=== PATIENT | male | born 1960 | race African-American/Black ===

== ENCOUNTER 2023-04-12 14:57 | Inpatient (IN) | payer BC, OTHER ==
[~2023-04-12] VITALS: Ht 185.4 cm; Wt 100.0 kg
[2023-04-12 15:46] LABS: Basophils # (auto) 0.1 10 ^3/uL (0-0.2); Basophils % (auto) 1.2 % (0.0-2.0); Eosinophils # (auto) 0.3 10 ^3/uL (0-0.8); Eosinophils % (auto) 3.4 % (0.0-7.0); Hematocrit 45.5 % (41.0-53.0); Hemoglobin 16.2 g/dL (13.5-17.5); Lymphocytes # (auto) 3.1 10 ^3/uL (0.4-5.4); Lymphocytes % (auto) 31.9 % (10.0-50.0); Mean Corpuscular Hemoglobin 31.5 pg (28.0-32.0); Mean Corpuscular Hgb Conc. 35.6 g/dL (32.0-36.0); Mean Corpuscular Volume 88.6 fL (80.0-100.0); Monocytes # (auto) 0.9 10 ^3/uL (0-1.3); Monocytes % (auto) 9.4 % (0.0-12.0); Neutrophils # (auto) 5.3 10 ^3/uL (1.6-8.6); Neutrophils % (auto) 54.1 % (37.0-80.0); Nucleated Red Blood Cells % 0.2 %; Red Blood Cells 5.13 10^6/uL (4.5-5.90); Red Cell Distribution Width 13.8 % (11.8-14.3); White Blood Cell 9.8 10^3/uL (4.4-10.8)
[2023-04-12] MEDS ORDERED: LABETALOL HCL 5 MG/ML 4ML SYRINGE IV ONE (16:00)
[2023-04-12 16:03] LABS: Albumin 3.9 g/dL (3.4-5.0); Calcium 8.6 mg/dL (8.5-10.1); INR 1.04 (0.9-1.15); Partial Thromboplastin Time 27.4 SEC (24.5-34.5); Potassium 4.6 mmol/L (3.5-5.1)
[2023-04-12 16:07] LABS: Bilirubin, Total 0.6 mg/dL (0.2-1.0)
[2023-04-12 16:48] LABS: BUN/Creatinine Ratio 15.1 (10.0-20.0); Total Protein 8.1 g/dL (6.4-8.2)
[2023-04-12] MEDS ORDERED: SODIUM CHLORIDE 0.9% 1,000 ML IV ONE ×2 (17:15)
[2023-04-12] MEDS ORDERED: ONDANSETRON HCL 4 MG/2 ML VIAL IV ONE (17:15)
[2023-04-12] MEDS ORDERED: IOHEXOL 350 MG/ML 100ML IJ ONE (17:24)
[2023-04-12 19:00] VITALS: BP 190/96; PULSE 105; RESP 20; O2SAT 97
[2023-04-12] MEDS ORDERED: SERT-206 PO (19:35)
[2023-04-12] MEDS ORDERED: LISI20TA56 PO (19:35)
[2023-04-12] MEDS ORDERED: AMLO1TAB23 PO (19:35)
[2023-04-12] MEDS ORDERED: ACETAMINOPHEN 325 MG TAB PO PRN (19:45)
[2023-04-12] MEDS ORDERED: guaiFENesin 200 MG/10 ML UD PO PRN (19:45)
[2023-04-12] MEDS ORDERED: LABETALOL HCL 5 MG/ML 4ML SYRINGE IV PRN (19:45)
[2023-04-13] MEDS ORDERED: IPRATROPIUM BROM 0.5 MG/2.5ML INH SOL NEB SCH
[2023-04-13] MEDS ORDERED: ALBUTEROL SULF 2.5 MG/0.5ML(0.5%) NEB SOLN NEB SCH
[2023-04-13] MEDS ORDERED: PANTOPRAZOLE 40 MG/10 ML VIAL INJ IV SCH (10:00)
[2023-04-13] MEDS ORDERED: SERTRALINE HCL 50 MG TAB PO SCH (10:00)
[2023-04-13] MEDS ORDERED: amLODIPine BESYLATE 5 MG TAB PO SCH (10:00)
[2023-04-13] MEDS ORDERED: LISINOPRIL 20 MG TAB PO SCH (10:00)
[2023-04-13] MEDS ORDERED: AZITHROMYCIN 500MG/ 250ML 250 ML IV SCH (10:00)
== END 2023-04-12 22:20 | disposition left against medical advice (07) | DRG 195 ==
LOC: ER 14:57 → OVERFLOW 19:33
PROVIDERS: ADMIT Nurse Practitioner Family; ATTEND Nurse Practitioner Family
DX: J18.9 Pneumonia, unspecified organism (principal); E66.9 Obesity, unspecified; Z53.29 Procedure and treatment not carried out because of patient's decision for other reasons; F32.A Depression, unspecified; J32.9 Chronic sinusitis, unspecified; I10 Essential (primary) hypertension; I16.0 Hypertensive urgency; Z68.29 Body mass index [BMI] 29.0-29.9, adult
CPT/HCPCS: 36415; 71045; 71275; 80053; 83880; 84484; 85025; 85379; 85610; 85730; G0378